=== PATIENT | male | born 1995 | race Caucasian/White ===

== ENCOUNTER 2023-06-26 15:30 | Emergency (ER) | payer BC ==
[~2023-06-26] VITALS: Ht 170.2 cm; Wt 68.0 kg
[2023-06-26 15:50] VITALS: BP 132/77; PULSE 115; RESP 17; TEMP 98; O2SAT 98
[2023-06-26] MEDS ORDERED: IBUP-2213 PO (17:07)
[2023-06-26] MEDS ORDERED: ACET-10509 PO (17:07)
[2023-06-26] MEDS ORDERED: IBUPROFEN 600 MG TAB PO ONE (17:10)
== END 2023-06-26 18:02 | disposition home or self-care (01) ==
LOC: MED 15:30
DX: S86.001A Unspecified injury of right Achilles tendon, initial encounter (principal); M76.61 Achilles tendinitis, right leg; X58.XXXA Exposure to other specified factors, initial encounter; Y93.66 Activity, soccer; Y92.89 Other specified places as the place of occurrence of the external cause; Y99.8 Other external cause status
CPT/HCPCS: 29515; 73610; 99283